=== PATIENT | female | born 1995 | race Caucasian/White ===

== ENCOUNTER 2018-10-10 16:15 | Emergency (ER) | payer SELFPAY ==
[~2018-10-10] VITALS: Ht 152.4 cm; Wt 73.4 kg
[2018-10-10] MEDS ORDERED: ONDANSETRON PF 4 MG/2 ML VIAL. IV ONE (16:45)
[2018-10-10] MEDS ORDERED: IV NORMAL SALINE 1,000ML 1,000 ML IV SCH (16:45)
[2018-10-10] MEDS ORDERED: FAMOTIDINE 20 MG/2 ML VIAL IVP ONE (16:45)
--- NOTE | 2018-10-10 17:01 | PHYS DOC ---
Past History Past Medical History: Hypertension, Other Past Surgical History: Appendectomy, Cholecystectomy, Tonsillectomy, Other Smoking: Non-smoker Alcohol Use: None Drug Use: Marijuana Adult General Chief Complaint Chief Complaint: epigastric pain in [facility] HPI Patient is a 22 year old female who presents with complaining of epigastric pain. Patient is at 21 weeks of gestation and states she had cholecystectomy about one year ago and after her surgery has had episodes of epigastric pain that usually happen after her surgery. Patient states during her pain getting worse and for the last 3 days the pain is worse than usual. Patient complaining of constant pain since this morning as a 7/10 sharp pain that resolved after arrival to emergency room. Patient complaining of episodes of nausea and vomiting. Patient denies abdominal contraction, vaginal bleeding or discharge, fever and chills, diarrhea and constipation, urinary symptom. Patient feels movement without problem. Review of Systems Review of Systems Constitutional: Denies fever or chills [] Eyes: Denies change in visual acuity, redness, or eye pain [] HENT: Denies nasal congestion or sore throat [] Respiratory: Denies cough or shortness of breath [] Cardiovascular: No additional information not addressed in HPI [] GI: Reports abdominal pain, nausea, vomiting, denies bloody stools or diarrhea [ ] : Denies dysuria or hematuria [] Musculoskeletal: Denies back pain or joint pain [] Integument: Denies rash or skin lesions [] Neurologic: Denies headache, focal weakness or sensory changes [] Endocrine: Denies polyuria or polydipsia [] All other systems were reviewed and found to be within normal limits, except as documented in this note. Current Medications Current Medications Current Medications Medications (Trade) Dose Ordered Sig/[facility] Start Time Stop Time Status Last Admin Dose Admin Famotidine (Pepcid Vial) 20 mg 1X ONCE 10/10/18 16:45 10/10/18 16:46 DC Ondansetron HCl (Zofran) 4 mg 1X ONCE 10/10/18 16:45 10/10/18 16:46 DC Sodium Chloride 1,000 ml @ 1,000 mls/hr Q1H 10/10/18 16:45 10/10/18 17:44 Allergies Allergies Allergies Coded Allergies Type Severity Reaction Last Updated Verified amoxicillin Allergy Unknown RASH 10/10/18 Yes clavulanic acid Allergy Unknown RASH 10/10/18 Yes Physical Exam Physical Exam Constitutional: Well developed, well nourished, no acute distress, non-toxic appearance. [] HENT: Normocephalic, atraumatic, bilateral external ears normal, oropharynx moist, no oral exudates, nose normal. [] Eyes: PERRLA, EOMI, conjunctiva normal, no discharge. [] Neck: Normal range of motion, no tenderness, supple, no stridor. [] Cardiovascular:Heart rate regular rhythm, no murmur [] Lungs & Thorax: Bilateral breath sounds clear to auscultation [] Abdomen: Bowel sounds normal, soft, no tenderness, no masses, no pulsatile masses, gravid abdomen without tenderness. [] Skin: Warm, dry, no erythema, no rash. [] Back: No tenderness, no CVA tenderness. [] Extremities: No tenderness, no cyanosis, no clubbing, ROM intact, no edema. [] Neurologic: Alert and oriented X 3, normal motor function, normal sensory function, no focal deficits noted. [] Psychologic: Affect normal, judgement normal, mood normal. [] Current Patient Data Vital Signs Vital Signs Date Time Temp Pulse Resp B/P (MAP) Pulse Ox O2 Delivery O2 Flow Rate FiO2 10/10/18 16:15 97.7 108 18 97 Room Air EKG EKG KG interpreted by me. EKG at 1624 showed sinus tachycardia rate of 103, otherwise normal EKG without acute ST and T wave abnormality. Radiology/Procedures Radiology/Procedures [] Course & Med Decision Making Course & Med Decision Making Pertinent Labs reviewed. (See chart for details) discharge: I've spoken with the patient and/or caregivers. I've explained the patient's condition, diagnosis and treatment plan based on information available to me at this time. I've answered the patient's and/or caregivers questions and addressed any concerns. The patient and/or caregivers have a good understanding the patient's diagnosis, condition and treatment plan as can be expected at this point. Vital signs have been stabilized. The patient's condition is stable for discharge from the emergency department. The patient will pursue further outpatient evaluation with her primary care provider or other designated consulting physician as outlined in the discharge instructions. Patient and/or caregivers are agreeable to this plan of care and follow-up instructions have been explained in detail. The patient and/or caregivers have received these instructions in written format and expressed understanding of these discharge instructions. The patient and her caregivers are aware that if any significant change in condition or worsening of symptoms should prompt him to immediately return to this of the closest emergency department. If an emergent department is not readily available I would encourage him to call 911. Manda Disclaimer Dragon Disclaimer This electronic medical record was generated, in whole or in part, using a voice recognition dictation system. Departure Departure: Impression: Primary Impression: Epigastric pain during , antepartum Additional Impression: Dyspepsia Disposition: HOME, SELF-CARE (at 1743) Condition: IMPROVED Referrals: WAQAS GAITAN (PCP) Patient Instructions: Abdominal Pain During , Diet for Gastroesophageal Reflux Disease, Adult Additional Instructions: Follow-up with your [facility] physician in 3-5 days Return to ER if not getting better Scripts Famotidine (PEPCID) 20 Mg Tablet 1 TAB PO BID for dyspepsia, #60 TAB 0 Refills Prov: MARCIA WATKINS MD 10/10/18 Problem Qualifiers MARCIA WATKINS MD Oct 10, 2018 17:01
[2018-10-10 17:02] LABS: BASO # 0.1 x10^3/uL (0.0-0.2); BASO % 1 % (0-3); EOS # 0.1 x10^3/uL (0.0-0.7); EOS % 1 % (0-3); HEMOGLOBIN 12.7 g/dL (12.0-15.5); LYMPH # 1.4 x10^3/uL (1.0-4.8); LYMPH % 12 % (24-48); MEAN CORPUSCULAR HEMOGLOBIN 32 pg (25-35); MEAN CORPUSCULAR HGB CONC 34 g/dL (31-37); MEAN CORPUSCULAR VOLUME 93 fL (79-100); MONO # 0.8 x10^3/uL (0.0-1.1); MONO % 7 % (0-9); NEUT # 9.7 x10^3uL (1.8-7.7); NEUT % 80 % (31-73); PLATELET COUNT 242 x10^3/uL (140-400); RED BLOOD COUNT 3.97 x10^6/uL (3.50-5.40); WHITE BLOOD COUNT 12.1 x10^3/uL (4.0-11.0)
[2018-10-10 17:13] LABS: ALBUMIN 2.7 g/dL (3.4-5.0); ALBUMIN/GLOBULIN RATIO 0.7 (1.0-1.7); CALCIUM 7.8 mg/dL (8.5-10.1); CREATININE 0.5 mg/dL (0.6-1.0); GFR 154.3; POTASSIUM 3.7 mmol/L (3.5-5.1); TOTAL BILIRUBIN 0.4 mg/dL (0.2-1.0); TOTAL PROTEIN 6.4 g/dL (6.4-8.2)
[2018-10-10 17:30] VITALS: BP 108/68
[2018-10-10 17:34] LABS: BILIRUBIN,URINE NEG (NEG); CLARITY,URINE CLEAR; COLOR,URINE YELLOW; GLUCOSE,URINE NEG (NEG); NITRITE,URINE NEG (NEG); UROBILINOGEN,URINE 0.2 mg/dL (0.2 mg/dL)
[2018-10-10 17:35] LABS: BACTERIA,URINE FEW /HPF (0-FEW); RBC,URINE 0 /HPF (0-2); SQUAMOUS EPITHELIAL CELL,UR OCC /LPF
--- NOTE | 2018-10-10 17:45 | EKG ---
[address] [address] Test Date: 2018-10-10 Test Time: 16:24:31 Pat Name: MONTEZ BARNES Department: Room: Gender: F Electric Crane Operator: NICK : [id number] Requested By: MARCIA WATKINS Order Number: [id number] Reading MD: Irineo Toro MD Measurements Intervals Noti Rate: 103 P: 39 MD: 130 QRS: 33 QRSD: 76 T: 19 QT: 328 QTc: 432 Interpretive Statements SINUS TACHYCARDIA Electronically Signed On 10-16-2018 9:25:53 DINKER by Irineo Toro MD
[2018-10-10] MEDS ORDERED: FAMO-63 PO (17:46)
== END 2018-10-10 17:54 | disposition home or self-care (01) ==
LOC: ER 16:15
DX: O26.892 Other specified pregnancy related conditions, second trimester (principal); R10.13 Epigastric pain; O21.9 Vomiting of pregnancy, unspecified; O16.2 Unspecified maternal hypertension, second trimester; Z3A.21 21 weeks gestation of pregnancy; Z90.49 Acquired absence of other specified parts of digestive tract; Z90.89 Acquired absence of other organs; Z88.1 Allergy status to other antibiotic agents
CPT/HCPCS: 36415; 80053; 81001; 83690; 85025; 93005; 96361; 96374; 96375; 99284; J2405; J3490; J7030

== ENCOUNTER 2020-01-12 18:16 | Emergency (ER) | payer OTHER ==
[~2020-01-12] VITALS: Ht 152.4 cm; Wt 57.3 kg
[~2020-01-12 18:16] MED LIST: FAMO-63 PO
[2020-01-12 18:44] VITALS: BP 133/80
--- NOTE | 2020-01-12 18:45 | PHYS DOC ---
Past History Past Medical History: Hypertension, Other Past Surgical History: Appendectomy, Cholecystectomy, Tonsillectomy, Other Smoking: Non-smoker Alcohol Use: None Drug Use: Marijuana General Adult EDM: Chief Complaint: SEXUALLY TRANSMITTED DISEASE HPI: HPI: 24F p/w vaginal irritation and some mild dysuria. 3 days ago, Tx for chlamydia, gonorrhea. Also on treatment for genital herpes. No vaginal bleeding or discharge at this time, now resolved. No aggravating or alleviating factors. Review of Systems: Review of Systems: Constitutional: Denies fever or chills Eyes: Denies change in visual acuity HENT: Denies nasal congestion or sore throat Respiratory: Denies cough or shortness of breath Cardiovascular: Denies chest pain or edema GI: Denies abdominal pain, nausea, vomiting, bloody stools or diarrhea : Reports dyuria, vaginal irritation. Musculoskeletal: Denies back pain or joint pain Integument: Denies rash Neurologic: Denies headache, focal weakness or sensory changes Heart Score: Risk Factors: Risk Factors: DM, Current or recent (<one month) smoker, HTN, HLP, family history of CAD, obesity. Risk Scores: Score 0 - 3: 2.5% MACE over next 6 weeks - Discharge Home Score 4 - 6: 20.3% MACE over next 6 weeks - Admit for Clinical Observation Score 7 - 10: 72.7% MACE over next 6 weeks - Early Invasive Strategies Allergies: Allergies: Allergies Coded Allergies Type Severity Reaction Last Updated Verified amoxicillin Allergy Unknown RASH 10/10/18 Yes clavulanic acid Allergy Unknown RASH 10/10/18 Yes Physical Exam: PE: Constitutional: Well developed, well nourished, no acute distress, non-toxic appearance. [] HENT: Normocephalic, atraumatic, bilateral external ears normal, oropharynx moist, Eyes: PERRL, conjunctiva normal, no discharge. [] Neck: Normal range of motion, no tenderness, supple, no stridor. [] Cardiovascular:Heart rate regular rhythm, no murmur [] Lungs & Thorax: Bilateral breath sounds clear to auscultation [] Abdomen: Bowel sounds normal, soft, no tenderness : No vulovaginal lesions or rash. Skin: Warm, dry, no erythema, no rash. [] Back: No tenderness, no CVA tenderness. [] Extremities: No tenderness, no cyanosis, no clubbing Neurologic: Alert and oriented X 3 Psychologic: Affect normal, judgement normal, mood normal. [] EKG: EKG: [] Radiology/Procedures: Radiology/Procedures: [] Course & Med Decision Making: Course & Med Decision Making In summary, 24F Tx for chlamydia/gonorrhea a few days ago, p/w vaginal irriation/itching. Largely unremarkable abd/ exam. UA unremarkable. HCG neg. Will Tx empirically for possible vulovaginal candidiasis with diflucan 150 PO x1. Will DC home with outpatient FU. Return precautions given. Dragon Disclaimer: Dragon Disclaimer: This electronic medical record was generated, in whole or in part, using a voice recognition dictation system. Departure Departure: Impression: Primary Impression: Vulvovaginal candidiasis Disposition: 01 HOME, SELF-CARE Condition: STABLE Referrals: WAQAS GAITAN (PCP) Patient Instructions: Candidal Vulvovaginitis, [id number] Additional Instructions: Please follow up with your primary doctor. VERONA BECK DO January 12, 2020 18:45
[2020-01-12 18:59] LABS: U PREG PATIENT NEGATIVE (NEG)
[2020-01-12 19:00] LABS: BILIRUBIN,URINE NEG (NEG); CLARITY,URINE CLOUDY; COLOR,URINE YELLOW; GLUCOSE,URINE NEG (NEG); NITRITE,URINE NEG (NEG); UROBILINOGEN,URINE 0.2 mg/dL (0.2 mg/dL)
[2020-01-12 19:06] LABS: RBC,URINE >40 /HPF (0-2)
[2020-01-12 19:07] LABS: BACTERIA,URINE MOD /HPF (0-FEW)
[2020-01-12 19:08] LABS: SQUAMOUS EPITHELIAL CELL,UR MANY /LPF
[2020-01-12] MEDS ORDERED: FLUCONAZOLE 100 MG TABLET. PO ONE (19:15)
== END 2020-01-12 19:18 | disposition home or self-care (01) ==
LOC: ER 18:16
DX: B37.3 Candidiasis of vulva and vagina (principal); I10 Essential (primary) hypertension; Z88.1 Allergy status to other antibiotic agents
CPT/HCPCS: 81001; 81025; 99283

== ENCOUNTER 2020-06-15 12:31 | Emergency (ER) | payer OTHER ==
[~2020-06-15] VITALS: Ht 152.4 cm; Wt 60.7 kg
[2020-06-15 12:43] VITALS: BP 120/88
[2020-06-15] MEDS ORDERED: CLIN300C8 PO (13:11)
--- NOTE | 2020-06-15 13:11 | PHYS DOC ---
Past History Past Medical History: Anxiety, Depression, Hypertension, Other Additional Past Medical Histor: ADHD, Gastroenteritis Past Surgical History: Appendectomy, Cholecystectomy, Tonsillectomy, Other Additional Past Surgical Histo: left knee surgery x2 Smoking: Non-smoker Alcohol Use: Rarely Drug Use: Marijuana General Adult EDM: Chief Complaint: SKIN PROBLEM HPI: HPI: Patient is a [age] year old [sex] who presents with [] Review of Systems: Review of Systems: Constitutional: Denies fever or chills Eyes: Denies change in visual acuity HENT: Denies nasal congestion or sore throat Respiratory: Denies cough or shortness of breath Cardiovascular: Denies chest pain or edema GI: Denies abdominal pain, nausea, vomiting, bloody stools or diarrhea : Denies dysuria Musculoskeletal: Denies back pain or joint pain Integument: Denies rash Neurologic: Denies headache, focal weakness or sensory changes Endocrine: Denies polyuria or polydipsia Lymphatic: Denies swollen glands Psychiatric: Denies depression or anxiety Heart Score: Risk Factors: Risk Factors: DM, Current or recent (<one month) smoker, HTN, HLP, family history of CAD, obesity. Risk Scores: Score 0 - 3: 2.5% MACE over next 6 weeks - Discharge Home Score 4 - 6: 20.3% MACE over next 6 weeks - Admit for Clinical Observation Score 7 - 10: 72.7% MACE over next 6 weeks - Early Invasive Strategies Allergies: Allergies: Allergies Coded Allergies Type Severity Reaction Last Updated Verified amoxicillin Allergy Unknown RASH 10/10/18 Yes clavulanic acid Allergy Unknown RASH 10/10/18 Yes Physical Exam: PE: Constitutional: Well developed, well nourished, no acute distress, non-toxic appearance. [] HENT: Normocephalic, atraumatic, bilateral external ears normal, oropharynx moist, no oral exudates, nose normal. [] Eyes: PERRLA, EOMI, conjunctiva normal, no discharge. [] Neck: Normal range of motion, no tenderness, supple, no stridor. [] Cardiovascular:Heart rate regular rhythm, no murmur [] Lungs & Thorax: Bilateral breath sounds clear to auscultation [] Abdomen: Bowel sounds normal, soft, no tenderness, no masses, no pulsatile masses. [] Skin: Warm, dry, no erythema, no rash. [] Back: No tenderness, no CVA tenderness. [] Extremities: No tenderness, no cyanosis, no clubbing, ROM intact, no edema. [] Neurologic: Alert and oriented X 3, normal motor function, normal sensory function, no focal deficits noted. [] Psychologic: Affect normal, judgement normal, mood normal. [] Current Patient Data: Vital Signs: Vital Signs Date Time Temp Pulse Resp B/P (MAP) Pulse Ox O2 Delivery O2 Flow Rate FiO2 06/15/20 12:43 98.4 89 16 120/88 (99) 97 Room Air EKG: EKG: [] Radiology/Procedures: Radiology/Procedures: [] Course & Med Decision Making: Course & Med Decision Making Pertinent Labs and Imaging studies reviewed. (See chart for details) [] Dragon Disclaimer: Dragon Disclaimer: This electronic medical record was generated, in whole or in part, using a voice recognition dictation system. Departure Departure: Impression: Primary Impression: Cellulitis of right elbow Disposition: 01 DC HOME SELF CARE/HOMELESS Condition: STABLE Referrals: WAQAS GAITAN (PCP) Patient Instructions: Cellulitis, [id number], Insect Bite, [id number] Scripts Clindamycin Hcl (CLINDAMYCIN HCL) 300 Mg Capsule 1 CAP PO TID for infection for 7 Days, #21 CAP Prov: HARRIS CRAWFORD DO 06/15/20 HARRIS CRAWFORD DO Jun 15, 2020 13:11
[2020-06-15] MEDS ORDERED: CLINDAMYCIN HCL 150 MG CAPSULE PO ONE (13:30)
[2020-06-15] MEDS ORDERED: DEXAMETHASONE 4 MG TABLET PO ONE (13:30)
== END 2020-06-15 13:18 | disposition home or self-care (01) ==
LOC: ER 12:31
DX: L03.113 Cellulitis of right upper limb (principal); I10 Essential (primary) hypertension; Z88.1 Allergy status to other antibiotic agents
CPT/HCPCS: 99283; J8540

== ENCOUNTER 2020-06-30 13:44 | Emergency (ER) | payer OTHER ==
[~2020-06-30] VITALS: Ht 152.4 cm; Wt 59.0 kg
[~2020-06-30 13:44] MED LIST changes: +CLIN300C8 PO
[2020-06-30 14:26] VITALS: BP 132/100
== END 2020-06-30 15:18 | disposition left against medical advice (07) ==
LOC: ER 13:44
DX: N89.8 Other specified noninflammatory disorders of vagina (principal); Z53.21 Procedure and treatment not carried out due to patient leaving prior to being seen by health care provider

== ENCOUNTER 2020-08-15 02:11 | Emergency (ER) | payer OTHER ==
[~2020-08-15] VITALS: Ht 152.4 cm; Wt 59.0 kg
--- NOTE | 2020-08-15 02:29 | PHYS DOC ---
Past History Past Medical History: Hypertension, Migraines, Other Additional Past Medical Histor: ADHD, Gastroenteritis Past Surgical History: Other Additional Past Surgical Histo: left knee surgery x2 Smoking: Non-smoker Alcohol Use: None Drug Use: Marijuana General Adult EDM: Chief Complaint: HEADACHE HPI: HPI: Patient is a 24-year-old female coming in for headache. Patient states she has a history of migraines and has multiple visits to emergency departments for headaches. Patient also states she has had some nausea and vomiting which she typically has with her headaches. Has baseline diarrhea. Patient states headache started in the frontal area of her head and now is around her entire head. Patient states she was sleeping when the headache started but it woke her up yesterday afternoon. Says it very quickly went to maximal intensity. States she has not had a headache this bad in the past. States otherwise she has been well not had any fevers, body aches, cough. Review of Systems: Review of Systems: Constitutional: Denies fever or chills Eyes: Denies change in visual acuity, complains of photophobia HENT: Denies nasal congestion or sore throat Respiratory: Denies cough or shortness of breath Cardiovascular: Denies chest pain or edema GI: Denies abdominal pain, nausea, vomiting, bloody stools or diarrhea : Denies dysuria Musculoskeletal: Denies back pain or joint pain Integument: Denies rash Neurologic: Diffuse headache but denies focal weakness or sensory changes Endocrine: Denies polyuria or polydipsia Lymphatic: Denies swollen glands Psychiatric: Denies depression or anxiety Current Medications: Current Meds: Current Medications Medications (Trade) Dose Ordered Sig/Tere Start Time Stop Time Status Last Admin Dose Admin Diphenhydramine HCl (Benadryl) 50 mg 1X ONCE 08/15/20 02:30 08/15/20 02:31 UNV Ondansetron HCl (Zofran) 4 mg 1X ONCE 08/15/20 02:30 08/15/20 02:31 UNV Prochlorperazine Edisylate (Compazine) 10 mg 1X ONCE 08/15/20 02:30 08/15/20 02:31 UNV Sodium Chloride 1,000 ml @ 1,000 mls/hr 1X ONCE 08/15/20 02:30 08/15/20 03:29 UNV Allergies: Allergies: Allergies Coded Allergies Type Severity Reaction Last Updated Verified amoxicillin Allergy Unknown 06/30/20 Yes clavulanic acid Allergy Unknown RASH 10/10/18 Yes Physical Exam: PE: Constitutional: Well developed, well nourished, no acute distress, non-toxic appearance. [] HENT: Normocephalic, atraumatic, bilateral external ears normal, oropharynx moist, no oral exudates, nose normal. [] Eyes: PERRLA, EOMI, conjunctiva normal, no discharge. [] Neck: Normal range of motion, no tenderness, supple, no stridor. [] Cardiovascular:Heart rate regular rhythm, no murmur [] Lungs & Thorax: Bilateral breath sounds clear to auscultation [] Abdomen: Bowel sounds normal, soft, no tenderness, no masses, no pulsatile masses. [] Skin: Warm, dry, no erythema, no rash. [] Back: No tenderness, no CVA tenderness. [] Extremities: No tenderness, no cyanosis, no clubbing, ROM intact, no edema. [] Neurologic: Alert and oriented X 3, normal motor function, normal sensory function, no focal deficits noted. [] Psychologic: Affect normal, judgement normal, mood normal. [] Current Patient Data: Vital Signs: Vital Signs Date Time Temp Pulse Resp B/P (MAP) Pulse Ox O2 Delivery O2 Flow Rate FiO2 08/15/20 02:11 98.5 66 18 147/86 (106) 97 Room Air EKG: EKG: [] Radiology/Procedures: Radiology/Procedures: INDICATION: Reason: Severe headache / Spl. Instructions: / History: COMPARISON: None. TECHNIQUE: Axial CT images obtained through the head without intravenous contrast. One or more of the following individualized dose reduction techniques were utilized for this examination: 1. Automated exposure control; 2. Adjustment of the mA and/or kV according to patient size; 3. Use of iterative reconstruction technique. FINDINGS: No intracranial hemorrhage. No midline shift. Basal cisterns patent. Ventricles and sulci are unremarkable. No acute osseous abnormality. Orbits and paranasal sinuses unremarkable. IMPRESSION: * No acute intracranial hemorrhage. [] Heart Score: Risk Factors: Risk Factors: DM, Current or recent (<one month) smoker, HTN, HLP, family history of CAD, obesity. Risk Scores: Score 0 - 3: 2.5% MACE over next 6 weeks - Discharge Home Score 4 - 6: 20.3% MACE over next 6 weeks - Admit for Clinical Observation Score 7 - 10: 72.7% MACE over next 6 weeks - Early Invasive Strategies Course & Med Decision Making: Course & Med Decision Making Pertinent Labs and Imaging studies reviewed. (See chart for details) Headache improved medications, work-up unremarkable. [] Dragon Disclaimer: Dragon Disclaimer: This electronic medical record was generated, in whole or in part, using a voice recognition dictation system. Departure Departure: Impression: Primary Impression: Migraine headache Disposition: 01 DC HOME SELF CARE/HOMELESS Condition: IMPROVED Referrals: WAQAS GAITAN (PCP) Patient Instructions: General Headache Without Cause SONJA LAKE MD Aug 15, 2020 02:28
[2020-08-15] MEDS ORDERED: IV NORMAL SALINE 1,000ML 1,000 ML IV ONE (02:30)
[2020-08-15] MEDS ORDERED: PROCHLORPERAZINE 10 MG/2 ML VIAL. IV ONE (02:30)
[2020-08-15] MEDS ORDERED: ONDANSETRON PF 4 MG/2 ML VIAL. IVP ONE (02:30)
[2020-08-15] MEDS ORDERED: diphenhydrAMINE 50 MG/ML VIAL IVP ONE (02:30)
--- NOTE | 2020-08-15 03:18 | RAD ---
INDICATION: Reason: Severe headache / Spl. Instructions: / History: COMPARISON: None. TECHNIQUE: Axial CT images obtained through the head without intravenous contrast. One or more of the following individualized dose reduction techniques were utilized for this examinat ion: 1. Automated exposure control; 2. Adjustment of the mA and/or kV according to patient size; 3 . Use of iterative reconstruction technique. FINDINGS: No intracranial hemorrhage. No midline shift. Basal cisterns patent. Ventricles and sulci are unremarkable. No acute osseous abnormality. Orbits and paranasal sinuses unremarkable. IMPRESSION: * No acute intracranial hemorrhage. Electronically signed by: Camilo Schaffer MD (08/15/2020 3:15 AM) [id number]
[2020-08-15 03:22] LABS: BASO # 0.1 x10^3/uL (0.0-0.2); BASO % 1 % (0-3); EOS % 0 % (0-3); HEMATOCRIT 43.1 % (36.0-47.0); HEMOGLOBIN 14.4 g/dL (12.0-15.5); LYMPH # 1.8 x10^3/uL (1.0-4.8); LYMPH % 16 % (24-48); MEAN CORPUSCULAR HEMOGLOBIN 31 pg (25-35); MEAN CORPUSCULAR HGB CONC 34 g/dL (31-37); MEAN CORPUSCULAR VOLUME 92 fL (79-100); MONO # 0.4 x10^3/uL (0.0-1.1); MONO % 4 % (0-9); NEUT # 8.7 x10^3uL (1.8-7.7); NEUT % 79 % (31-73); PLATELET COUNT 225 x10^3/uL (140-400); RED BLOOD COUNT 4.68 x10^6/uL (3.50-5.40); RED CELL DISTRIBUTION WIDTH 12.8 % (11.5-14.5)
[2020-08-15 03:26] LABS: CALCIUM 8.8 mg/dL (8.5-10.1); CREATININE 0.9 mg/dL (0.6-1.0); GFR 76.9; POTASSIUM 3.4 mmol/L (3.5-5.1)
[2020-08-15 03:34] LABS: ALBUMIN 3.8 g/dL (3.4-5.0); ALBUMIN/GLOBULIN RATIO 1.1 (1.0-1.7); TOTAL BILIRUBIN 0.4 mg/dL (0.2-1.0); TOTAL PROTEIN 7.2 g/dL (6.4-8.2)
[2020-08-15] MEDS ORDERED: KETOROLAC 15 MG/ML VIAL. IVP ONE (04:00)
[2020-08-15 04:04] VITALS: BP 134/87
== END 2020-08-15 04:25 | disposition home or self-care (01) ==
LOC: ER 02:11
DX: G43.909 Migraine, unspecified, not intractable, without status migrainosus (principal); R11.2 Nausea with vomiting, unspecified; R19.7 Diarrhea, unspecified; I10 Essential (primary) hypertension; F90.9 Attention-deficit hyperactivity disorder, unspecified type; Z88.1 Allergy status to other antibiotic agents
CPT/HCPCS: 36415; 70450; 80053; 85025; 96361; 96374; 96375; 99284; J0780; J1200; J1885; J2405; J7030

== ENCOUNTER 2020-09-27 08:23 | Emergency (ER) | payer OTHER ==
[~2020-09-27] VITALS: Ht 152.4 cm; Wt 61.6 kg
[~2020-09-27 08:23] MED LIST changes: -CLIN300C8 PO; +CLIN300C9 PO
[2020-09-27] MEDS ORDERED: ONDANSETRON ODT 4 MG TAB.RAPDIS PO ONE (08:30)
[2020-09-27] MEDS ORDERED: AZITHROMYCIN 250 MG TABLET. PO ONE (09:00)
[2020-09-27] MEDS ORDERED: IV NORMAL SALINE 1,000ML 1,000 ML IV ONE (09:00)
[2020-09-27 09:17] LABS: BASO # 0.1 x10^3/uL (0.0-0.2); BASO % 1 % (0-3); EOS % 0 % (0-3); HEMATOCRIT 40.7 % (36.0-47.0); HEMOGLOBIN 13.7 g/dL (12.0-15.5); LYMPH # 2.1 x10^3/uL (1.0-4.8); LYMPH % 21 % (24-48); MEAN CORPUSCULAR HEMOGLOBIN 31 pg (25-35); MEAN CORPUSCULAR HGB CONC 34 g/dL (31-37); MEAN CORPUSCULAR VOLUME 92 fL (79-100); MONO # 0.6 x10^3/uL (0.0-1.1); MONO % 6 % (0-9); NEUT # 7.2 x10^3uL (1.8-7.7); NEUT % 72 % (31-73); PLATELET COUNT 236 x10^3/uL (140-400); RED BLOOD COUNT 4.43 x10^6/uL (3.50-5.40)
[2020-09-27 09:26] LABS: CALCIUM 8.7 mg/dL (8.5-10.1); CREATININE 0.7 mg/dL (0.6-1.0); GFR 102.8; POTASSIUM 3.8 mmol/L (3.5-5.1)
--- NOTE | 2020-09-27 09:29 | PHYS DOC ---
Past History Past Medical History: Hypertension, Migraines, Other Additional Past Medical Histor: ADHD, Gastroenteritis Past Surgical History: Other Additional Past Surgical Histo: left knee surgery x2 Past Surgical History L fallopian tube removal due to ectopic . Smoking: Non-smoker Alcohol Use: None Drug Use: Marijuana General Adult EDM: Chief Complaint: MULTIPLE COMPLAINTS HPI: HPI: Patient is a 24 year old female who presents with vaginal discharge, nausea and vomiting x 1 day. She states she is 5 wks based on LMP which was Aug 12 and two at home positive tests. She has not yet seen her OB, her first appointment is Oct 24. She states she was diagnosed with trichomonas back in July both her and her partner were treated for it, but the symptoms feel the same to when she had that. This is her third , she has 1 living child at home and has a history of an ectopic which was removed along with her left fallopian tube. She denies any morning sickness symptoms with her first 2 pregnancies, states she has been vomiting 10 times per day for the last few days. She has had multiple sexual partners within the past few months. She has no other complaints at this time, denies any vaginal bleeding, pelvic cramping, or pelvic pain. Review of Systems: Review of Systems: Constitutional: Denies fever or chills Eyes: Denies redness or eye pain HENT: Denies nasal congestion or sore throat Respiratory: Denies cough or shortness of breath Cardiovascular: Denies chest pain or palpitations GI: Denies abdominal pain, nausea, or vomiting : Denies dysuria or hematuria. States she has had white/greenish vaginal discharge. Musculoskeletal: Denies back pain or joint pain Integument: Denies rash or skin lesions Neurologic: Denies headache, focal weakness or sensory changes Complete systems were reviewed and found to be within normal limits, except as documented in this note. Current Medications: Current Meds: Current Medications Medications (Trade) Dose Ordered Sig/Tere Start Time Stop Time Status Last Admin Dose Admin Azithromycin (Zithromax) 1,000 mg 1X ONCE 09/27/20 09:00 09/27/20 09:01 DC Ceftriaxone Sodium (Rocephin Im) 500 mg 1X ONCE 09/27/20 09:00 09/27/20 09:01 DC Ondansetron HCl (Zofran Odt) 4 mg 1X ONCE 09/27/20 08:30 09/27/20 08:32 DC 09/27/20 08:39 4 MG Sodium Chloride 1,000 ml @ 1,000 mls/hr 1X ONCE 09/27/20 09:00 09/27/20 09:59 09/27/20 08:58 1,000 MLS/HR Allergies: Allergies: Allergies Coded Allergies Type Severity Reaction Last Updated Verified amoxicillin Allergy Unknown 06/30/20 Yes clavulanic acid Allergy Unknown RASH 10/10/18 Yes Physical Exam: PE: Constitutional: Well developed, well nourished, no acute distress, non-toxic appearance HENT: Normocephalic, atraumatic Eyes: PERRL, EOMI, conjunctiva normal, no discharge Neck: Normal range of motion, no tenderness, supple Lungs & Thorax: No respiratory distress, equal chest rise and fall Abdomen: Soft, no tenderness : A speculum exam was performed with diploma dental assistant (Katrin CARRILLO) present in the room. Cervical os was closed, with no bleeding or lesions. There was moderate white/green discharge from the os. No CMT, slight right sided adnexal tenderness with bimanual exam. No left adnexal tenderness. Skin: Warm, dry, no erythema, no rash Back: No tenderness, no CVA tenderness Extremities: No tenderness, ROM intact, no edema Neurologic: Alert and oriented X 3, normal motor function, normal sensory function, no focal deficits noted Psychologic: Affect normal, judgment normal Current Patient Data: Labs: Laboratory Tests Test 09/27/20 08:57 White Blood Count 10.0 x10^3/uL (4.0-11.0) Red Blood Count 4.43 x10^6/uL (3.50-5.40) Hemoglobin 13.7 g/dL (12.0-15.5) Hematocrit 40.7 % (36.0-47.0) Mean Corpuscular Volume 92 fL (79-100) Mean Corpuscular Hemoglobin 31 pg (25-35) Mean Corpuscular Hemoglobin Concent 34 g/dL (31-37) Red Cell Distribution Width 13.0 % (11.5-14.5) Platelet Count 236 x10^3/uL (140-400) Neutrophils (%) (Auto) 72 % (31-73) Lymphocytes (%) (Auto) 21 % (24-48) L Monocytes (%) (Auto) 6 % (0-9) Eosinophils (%) (Auto) 0 % (0-3) Basophils (%) (Auto) 1 % (0-3) Neutrophils # (Auto) 7.2 x10^3uL (1.8-7.7) Lymphocytes # (Auto) 2.1 x10^3/uL (1.0-4.8) Monocytes # (Auto) 0.6 x10^3/uL (0.0-1.1) Eosinophils # (Auto) 0.0 x10^3/uL (0.0-0.7) Basophils # (Auto) 0.1 x10^3/uL (0.0-0.2) EKG: EKG: [] Radiology/Procedures: Radiology/Procedures: [] Course & Med Decision Making: Course & Med Decision Making Pertinent Lab studies reviewed. (See chart for details) Payal Loo is a 24-year-old female presenting today with vaginal discharge, nausea, and vomiting. She has 5 weeks based off last menstrual period and 2 at home test. Her serum bhcg was 52,124 which is consistent with her estimated gestational age. She was given a fluid bolus to help with dehydration, and zofran to help with her nausea. Labs were unremarkable. Her urinalysis did not show any sign of UTI. No ketones which would have made me more concerned for hyperemesis gravidarum as an etiology for her n/v, due to this her n/v is more consistent with normal symptoms. Her wet prep did not show any signs of trichimonas, yeast infection, or clue cells. Due to her sexual history, and symptoms have prescribed prophylactic treatment with azithromycin and rocephin for gonorrhea and chlamydia while awaiting her official cultures. I have also given her prescriptions for a vitamin and zofran prn to help with the nausea. She already has a scheduled appointment with her regular OB for October 24. All other questions were answered. Patient stable for discharge with outpatient follow-up with PCP. Discussed findings and plan with patient, who acknowledges understanding and agreement. Manda Disclaimer: Manda Disclaimer: This electronic medical record was generated, in whole or in part, using a voice recognition dictation system. Departure Departure: Impression: Primary Impression: Nausea and vomiting in Additional Impression: Vaginal discharge in Qualified Codes: O26.891 - Other specified related conditions, first trimester; N89.8 - Other specified noninflammatory disorders of vagina Disposition: 01 DC HOME SELF CARE/HOMELESS Condition: STABLE Referrals: WAQAS GAITAN (PCP) Patient Instructions: Nausea and Vomiting, [id number], Sexually Transmitted Diseases (STD) In Additional Instructions: You have been tested and treated for Chlamydia and Gonorrhea. The cultures still are pending at this time. If they come back (typically 48hours) positive, we will contact your regarding the result. You have already been treated. Please follow closely with your OB. Please hold any sexual activity for next 1 week. Scripts Vit #76/Iron,Carb/Fa (PRENATABS RX TABLET) 1 Each Tablet 1 TAB PO DAILY for , #30 TAB 0 Refills Prov: HARRIS CRAWFORD DO 09/27/20 Ondansetron (ONDANSETRON ODT) 4 Mg Tab.rapdis 1 TAB PO PRN Q6-8HRS PRN for NAUSEA, #16 TAB Prov: HARRIS CRAWFORD DO 09/27/20 HARRIS CRAWFORD DO Sep 27, 2020 09:29
[2020-09-27 09:33] LABS: ALBUMIN 3.4 g/dL (3.4-5.0); MAGNESIUM 1.9 mg/dL (1.8-2.4); TOTAL BILIRUBIN 0.3 mg/dL (0.2-1.0); TOTAL PROTEIN 6.8 g/dL (6.4-8.2)
[2020-09-27 09:59] LABS: AMORPHOUS SEDIMENT,UR PRESENT /HPF; BACTERIA,URINE FEW /HPF (0-FEW); BILIRUBIN,URINE NEG (NEG); CLARITY,URINE HAZY; COLOR,URINE YELLOW; GLUCOSE,URINE NEG (NEG); HYALINE CASTS, URINE FEW /HPF; NITRITE,URINE NEG (NEG); SQUAMOUS EPITHELIAL CELL,UR MANY /LPF; UROBILINOGEN,URINE 0.2 mg/dL (0.2 mg/dL)
[2020-09-27] MEDS ORDERED: PREN-2 PO (10:34)
[2020-09-27] MEDS ORDERED: ONDA4TAB12 PO (10:34)
[2020-09-27 10:51] VITALS: BP 119/70
[2020-09-28 19:07] LABS: CHLAMYDIA PROBE Negative (Negative)
== END 2020-09-27 10:57 | disposition home or self-care (01) ==
LOC: ER 08:23
DX: O21.9 Vomiting of pregnancy, unspecified (principal); O26.891 Other specified pregnancy related conditions, first trimester; N89.8 Other specified noninflammatory disorders of vagina; O16.1 Unspecified maternal hypertension, first trimester; G43.909 Migraine, unspecified, not intractable, without status migrainosus; Z3A.01 Less than 8 weeks gestation of pregnancy; Z88.1 Allergy status to other antibiotic agents
CPT/HCPCS: 36415; 80053; 81001; 83690; 83735; 84702; 85025; 87491; 87591; 96360; 96361; 96372; 99284; J0696; J7030; Q0111; Q0162

== ENCOUNTER 2020-10-09 08:00 | Emergency (ER) | payer OTHER ==
[~2020-10-09] VITALS: Ht 152.4 cm; Wt 61.6 kg
[~2020-10-09 08:00] MED LIST changes: +ONDA4TAB12 PO; +PREN-2 PO
[2020-10-09 08:03] VITALS: BP 123/78
[2020-10-09] MEDS ORDERED: ONDANSETRON ODT 4 MG TAB.RAPDIS ONE (08:05)
[2020-10-09 10:00] LABS: BARBITURATES NEG (NEG); BENZODIAZEPINES NEG (NEG); CANNABINOIDS POS (NEG); COCAINE NEG (NEG); METHADONE NEG (NEG); OPIATES NEG (NEG); PHENCYCLIDINE NEG (NEG)
[2020-10-09 10:01] LABS: AMPHETAMINE/METHAMPHETAMINE NEG (NEG)
[2020-10-09 10:08] LABS: BILIRUBIN,URINE NEG (NEG); CLARITY,URINE TURBID; COLOR,URINE YELLOW; GLUCOSE,URINE NEG (NEG); NITRITE,URINE NEG (NEG)
[2020-10-09 10:09] LABS: AMORPHOUS SEDIMENT,UR PRESENT /HPF; BACTERIA,URINE MOD /HPF (0-FEW); SQUAMOUS EPITHELIAL CELL,UR MOD /LPF
[2020-10-09] MEDS ORDERED: CEPH500T PO (10:23)
[2020-10-09] MEDS ORDERED: ONDA4TAB12 PO (10:23)
--- NOTE | 2020-10-09 10:24 | PHYS DOC ---
Past History Past Medical History: Hypertension, Other Additional Past Medical Histor: EISONOPHILIC GASTROENTERITIS Past Surgical History: Appendectomy, Cholecystectomy, Tonsillectomy, Tubal ligation, Other Additional Past Surgical Histo: KNEE X2 Smoking: Non-smoker Alcohol Use: None Drug Use: Marijuana Social History Narrative: marijuana yesterday General Adult EDM: Chief Complaint: VOMITING IN HPI: HPI: Patient is a 24-year-old female coming from EMS for 4 hours of vomiting and retching. Patient states she ran out of [email or web address] last night which has been working. He does not have any prior history of hyperemesis. Admits to daily use of marijuana. Denies any other drugs or alcohol. Patient states this is her third , has 1 child and had 1 ectopic. Denies any fevers, diarrhea, constipation. Review of Systems: Review of Systems: All other systems within normal limits except for as noted in the HPI Current Medications: Current Meds: Current Medications Medications (Trade) Dose Ordered Sig/Tere Start Time Stop Time Status Last Admin Dose Admin Ondansetron HCl (ZoBlurb Odt) 4 mg STK-MED ONCE 10/09/20 08:05 10/09/20 08:05 DC Allergies: Allergies: Allergies Coded Allergies Type Severity Reaction Last Updated Verified amoxicillin Allergy Unknown 10/09/20 Yes clavulanic acid Allergy Unknown RASH 10/09/20 Yes Physical Exam: PE: Constitutional: Well developed, well nourished, acute distress, non-toxic appearance. [] HENT: Normocephalic, atraumatic, bilateral external ears normal, nose normal. [] Eyes: PERRLA, conjunctiva normal, no discharge. [] Neck: No rigidity, supple, no stridor. [] Cardiovascular: Regular rate and rhythm, brisk cap refill [] Lungs & Thorax: Non labored symmetric respirations, no tachypnea or respiratory distress [] Abdomen: Soft, nondistended, generalized tenderness, no guarding or rebound. Skin: Warm, dry, no erythema, no rash. [] Back: Unremarkable Extremities: No deformities, range of motion grossly intact, no lower extremity edema [] Neurologic: Alert and oriented X 3, no focal deficits noted. [] Psychologic: Affect normal, judgement normal, mood normal. [] Current Patient Data: Labs: Laboratory Tests Test 2/7/21 09:25 10/09/20 09:37 Urine Collection Type Unknown Urine Color Yellow Urine Clarity Turbid Urine pH 8.0 Urine Specific [place] 1.020 Urine Protein Trace (NEG-TRACE) Urine Glucose (UA) Neg mg/dL (NEG) Urine Ketones (Stick) 15 mg/dL (NEG) Urine Blood Trace (NEG) Urine Nitrite Neg (NEG) Urine Bilirubin Neg (NEG) Urine Urobilinogen Dipstick 1.0 mg/dL (0.2 mg/dL) Urine Leukocyte Esterase Small (NEG) Urine RBC 3-5 /HPF (0-2) Urine WBC 5-10 /HPF (0-4) Urine Squamous Epithelial Cells Mod /LPF Urine Amorphous Sediment Present /HPF Urine Bacteria Mod /HPF (0-FEW) Urine Mucus Mod /LPF Urine Opiates Screen Neg (NEG) Urine Methadone Screen Neg (NEG) Urine Barbiturates Neg (NEG) Urine Phencyclidine Screen Neg (NEG) Urine Amphetamine/Methamphetamine Neg (NEG) Urine Benzodiazepines Screen Neg (NEG) Urine Cocaine Screen Neg (NEG) Urine Cannabinoids Screen Pos (NEG) Urine Ethyl Alcohol Neg (NEG) POC Urine HCG, Qualitative hcg positive (Negative) Vital Signs: Vital Signs Date Time Temp Pulse Resp B/P (MAP) Pulse Ox O2 Delivery O2 Flow Rate FiO2 10/09/20 08:03 97.8 70 18 123/78 (93) 100 EKG: EKG: [] Radiology/Procedures: Radiology/Procedures: [] Heart Score: Risk Factors: Risk Factors: DM, Current or recent (<one month) smoker, HTN, HLP, family history of CAD, obesity. Risk Scores: Score 0 - 3: 2.5% MACE over next 6 weeks - Discharge Home Score 4 - 6: 20.3% MACE over next 6 weeks - Admit for Clinical Observation Score 7 - 10: 72.7% MACE over next 6 weeks - Early Invasive Strategies Course & Med Decision Making: Course & Med Decision Making Pertinent Labs and Imaging studies reviewed. (See chart for details) [] Dragon Disclaimer: Dragon Disclaimer: This electronic medical record was generated, in whole or in part, using a voice recognition dictation system. Departure Departure: Impression: Primary Impression: Cannabinoid hyperemesis syndrome Disposition: 01 DC HOME SELF CARE/HOMELESS Condition: IMPROVED Referrals: WAQAS GAITAN (PCP) Patient Instructions: Nausea and Vomiting Scripts Cephalexin (CEPHALEXIN) 500 Mg Tablet 1 TAB PO BID for antibiotic for 5 Days, #10 TAB Prov: SONJA LAKE MD 10/09/20 Ondansetron (ONDANSETRON ODT) 4 Mg Tab.rapdis 1 TAB PO PRN Q6-8HRS PRN for NAUSEA for 10 Days, #20 TAB Prov: SONJA LAKE MD 10/09/20 SONJA LAKE MD Oct 09, 2020 10:23
== END 2020-10-09 11:00 | disposition home or self-care (01) ==
LOC: ER 08:00
DX: O21.0 Mild hyperemesis gravidarum (principal); O16.1 Unspecified maternal hypertension, first trimester; Z3A.00 Weeks of gestation of pregnancy not specified; Z88.1 Allergy status to other antibiotic agents
CPT/HCPCS: 36415; 80307; 81001; 81025; 87086; 99283

== ENCOUNTER 2020-10-10 08:20 | Emergency (ER) | payer OTHER ==
[~2020-10-10] VITALS: Ht 152.4 cm; Wt 61.6 kg
[~2020-10-10 08:20] MED LIST changes: +CEPH500T PO
--- NOTE | 2020-10-10 08:58 | PHYS DOC ---
Past History Past Medical History: Hypertension, Other Additional Past Medical Histor: EISONOPHILIC GASTROENTERITIS Past Surgical History: Appendectomy, Cholecystectomy, Tonsillectomy, Tubal ligation, Other Additional Past Surgical Histo: KNEE X2 Smoking: Non-smoker Alcohol Use: None Drug Use: Marijuana General Adult EDM: Chief Complaint: VOMITING IN HPI: HPI: Patient is a 24-year-old female coming in for vomiting. She is 8 weeks was seen in this emergency department yesterday and given a prescription for Zofran and Keflex. Patient states she did not have money to get her prescriptions filled and was okay yesterday after she left. Woke up again this morning around 5 and started vomiting. Denies any other new symptoms. States she will get paid today which revealed to get her prescriptions filled this morning is requesting relief from nausea and vomiting. Review of Systems: Review of Systems: All other systems within normal limits except for as noted in the HPI Current Medications: Current Meds: Current Medications Medications (Trade) Dose Ordered Sig/Tere Start Time Stop Time Status Last Admin Dose Admin Ondansetron HCl (Zofran Odt) 8 mg 1X ONCE 10/10/20 09:00 10/10/20 09:01 10/10/20 08:50 8 MG Allergies: Allergies: Allergies Coded Allergies Type Severity Reaction Last Updated Verified amoxicillin Allergy Unknown 10/09/20 Yes clavulanic acid Allergy Unknown RASH 10/09/20 Yes Physical Exam: PE: Constitutional: Well developed, well nourished, moderate acute distress, non- toxic appearance. [] HENT: Normocephalic, atraumatic, bilateral external ears normal, nose normal. [] Eyes: PERRLA, conjunctiva normal, no discharge. [] Neck: No rigidity, supple, no stridor. [] Cardiovascular: Regular rate and rhythm, brisk cap refill [] Lungs & Thorax: Non labored symmetric respirations, no tachypnea or respiratory distress [] Abdomen: Soft, nondistended, generalized tenderness, no rebound or guarding Skin: Warm, dry, no erythema, no rash. [] Back: Unremarkable Extremities: No deformities, range of motion grossly intact, no lower extremity edema [] Neurologic: Alert and oriented X 3, no focal deficits noted. [] Psychologic: Affect normal, judgement normal, mood normal. [] Current Patient Data: Vital Signs: Vital Signs Date Time Temp Pulse Resp B/P (MAP) Pulse Ox O2 Delivery O2 Flow Rate FiO2 10/10/20 08:28 99.1 90 18 134/90 (105) 97 Room Air EKG: EKG: [] Radiology/Procedures: Radiology/Procedures: [] Heart Score: Risk Factors: Risk Factors: DM, Current or recent (<one month) smoker, HTN, HLP, family history of CAD, obesity. Risk Scores: Score 0 - 3: 2.5% MACE over next 6 weeks - Discharge Home Score 4 - 6: 20.3% MACE over next 6 weeks - Admit for Clinical Observation Score 7 - 10: 72.7% MACE over next 6 weeks - Early Invasive Strategies Course & Med Decision Making: Course & Med Decision Making Vital signs stable, nausea controlled with Zofran ODT and patient passed p.o. challenge. Already has prescriptions from yesterday that she states she can get filled today. [] Dragon Disclaimer: Dragon Disclaimer: This electronic medical record was generated, in whole or in part, using a voice recognition dictation system. Departure Departure: Impression: Primary Impression: Nausea and vomiting during prior to 22 weeks gestation Disposition: 01 DC HOME SELF CARE/HOMELESS Condition: STABLE Referrals: WAQAS GAITAN (PCP) Patient Instructions: - First Trimester SONJA LAKE MD Oct 10, 2020 08:58
[2020-10-10] MEDS ORDERED: ONDANSETRON ODT 4 MG TAB.RAPDIS PO ONE (09:00)
[2020-10-10 09:51] VITALS: BP 113/58
== END 2020-10-10 09:51 | disposition home or self-care (01) ==
LOC: ER 08:20
DX: O21.9 Vomiting of pregnancy, unspecified (principal); O16.1 Unspecified maternal hypertension, first trimester; Z3A.08 8 weeks gestation of pregnancy; Z90.89 Acquired absence of other organs; Z90.49 Acquired absence of other specified parts of digestive tract; Z98.51 Tubal ligation status; Z88.1 Allergy status to other antibiotic agents
CPT/HCPCS: 99283; Q0162

== ENCOUNTER 2020-10-27 23:31 | Emergency (ER) | payer OTHER ==
[~2020-10-27] VITALS: Ht 152.4 cm; Wt 65.3 kg
--- NOTE | 2020-10-28 00:06 | PHYS DOC ---
Past History Past Medical History: Hypertension, Other Additional Past Medical Histor: EISONOPHILIC GASTROENTERITIS Past Surgical History: Appendectomy, Cholecystectomy, Tonsillectomy, Tubal ligation, Other Additional Past Surgical Histo: KNEE X2 Smoking: Non-smoker Alcohol Use: None Drug Use: Marijuana Adult General Chief Complaint Chief Complaint: VAGINAL BLEEDING HPI HPI Patient is a 24-year-old female, approximately 10 weeks by home test who presents with a chief complaint of vaginal bleeding. Patient has a significant history of ectopic last year and removal of fallopian tube. States that she had some thick bloody vaginal discharge today x1. Denies any recent illnesses, traumas, travel, fevers, chest pain, shortness of breath, dysuria, blood in the stool. States she has an upcoming appointment with her T[facility]SEL SNIPPER for her first ultrasound. Review of Systems Review of Systems Review of systems otherwise unremarkable except noted in HPI Allergies Allergies Allergies Coded Allergies Type Severity Reaction Last Updated Verified amoxicillin Allergy Unknown 10/09/20 Yes clavulanic acid Allergy Unknown RASH 10/09/20 Yes Physical Exam Physical Exam Constitutional: Well developed, well nourished, no acute distress, non-toxic appearance. [] HENT: Normocephalic, atraumatic, bilateral external ears normal, oropharynx moist, no oral exudates, nose normal. [] Eyes: conjunctiva normal, no discharge. [] Neck: Normal range of motion, no tenderness, supple, no stridor. [] Cardiovascular:Heart rate regular rhythm, no murmur [] Lungs & Thorax: Bilateral breath sounds clear to auscultation [] Abdomen: soft, no tenderness, no masses, no pulsatile masses. : Pelvic exam with no obvious bleeding, scant white discharge and closed cervical os Skin: Warm, dry, no erythema, no rash. [] Back: no CVA tenderness. [] Extremities: No tenderness, no cyanosis, no clubbing, ROM intact, no edema. [] Neurologic: Alert and oriented X 3, normal motor function, normal sensory function, no focal deficits noted. [] Psychologic: Affect normal, judgement normal, mood normal. [] Current Patient Data Lab Results Laboratory Tests Test 10/27/20 00:12 White Blood Count 8.9 x10^3/uL (4.0-11.0) Red Blood Count 3.81 x10^6/uL (3.50-5.40) Hemoglobin 11.9 g/dL (12.0-15.5) Hematocrit 35.8 % (36.0-47.0) Mean Corpuscular Volume 94 fL (79-100) Mean Corpuscular Hemoglobin 31 pg (25-35) Mean Corpuscular Hemoglobin Concent 33 g/dL (31-37) Red Cell Distribution Width 13.4 % (11.5-14.5) Platelet Count 247 x10^3/uL (140-400) Neutrophils (%) (Auto) 50 % (31-73) Lymphocytes (%) (Auto) 40 % (24-48) Monocytes (%) (Auto) 9 % (0-9) Eosinophils (%) (Auto) 1 % (0-3) Basophils (%) (Auto) 0 % (0-3) Neutrophils # (Auto) 4.5 x10^3uL (1.8-7.7) Lymphocytes # (Auto) 3.5 x10^3/uL (1.0-4.8) Monocytes # (Auto) 0.8 x10^3/uL (0.0-1.1) Eosinophils # (Auto) 0.1 x10^3/uL (0.0-0.7) Basophils # (Auto) 0.0 x10^3/uL (0.0-0.2) Urine Collection Type Unknown Urine Color Yellow Urine Clarity Cloudy Urine pH 6.0 Urine Specific [place] >=1.030 Urine Protein Neg (NEG-TRACE) Urine Glucose (UA) Neg mg/dL (NEG) Urine Ketones (Stick) Neg mg/dL (NEG) Urine Blood Mod (NEG) Urine Nitrite Neg (NEG) Urine Bilirubin Neg (NEG) Urine Urobilinogen Dipstick 0.2 mg/dL (0.2 mg/dL) Urine Leukocyte Esterase Trace (NEG) Urine RBC Occ /HPF (0-2) Urine WBC Occ /HPF (0-4) Urine Squamous Epithelial Cells Many /LPF Urine Bacteria Many /HPF (0-FEW) Maternal Serum HCG Beta Subunit 69283 mIU/mL (0-6) Sodium Level 136 mmol/L (136-145) Potassium Level 3.5 mmol/L (3.5-5.1) Chloride Level 101 mmol/L (98-107) Carbon Dioxide Level 25 mmol/L (21-32) Anion Gap 10 (6-14) Blood Urea Nitrogen 8 mg/dL (7-20) Creatinine 0.6 mg/dL (0.6-1.0) Estimated GFR (Cockcroft-Gault) 122.8 Glucose Level 97 mg/dL (70-99) Calcium Level 9.1 mg/dL (8.5-10.1) EKG EKG [] Radiology/Procedures Radiology/Procedures [] FINDINGS: The uterus measures 12 x 8 x 8.1 cm. Unremarkable uterine parenchyma. The cervix is closed and measured at approximately 4 cm. Normally marginated intrauterine gestational sac containing a pole with a crown-rump length of 4.33 cm. Estimated gestational age of 11 weeks 1 day. The right ovary measures 3.1 x 1.9 x 1.6 cm and the left ovary 2.9 x 2.2 x 1.5 cm. Normal Doppler flow. No complex cyst or mass. heart rate of 160 bpm. IMPRESSION: 1. Single live intrauterine without any complication by ultrasound to explain the patient's vaginal bleeding. 2. Estimated gestational age of 11 weeks 1 day corresponding to delivery date of 05/18/2021. Electronically signed by: OMEGA NANCE MD (10/28/2020 1:53 AM) [facility] Heart Score Risk Factors: Risk Factors: DM, Current or recent (<one month) smoker, HTN, HLP, family history of CAD, obesity. Risk Scores: Risk Factors: DM, Current or recent (<one month) smoker, HTN, HLP, family history of CAD, obesity. Course & Med Decision Making Course & Med Decision Making Patient is a 24-year-old female, approximately 10 weeks by home who presents with an episode of vaginal bleeding and concern for ectopic as she has had 1 in the past Vital signs not concerning. Physical exam noted above. Imaging with asymptomatic bacteriuria. Bedside ultrasound noted above with live intrauterine at about 11 weeks and a heart rate of 160. Started patient on Keflex for asymptomatic bacteriuria. Wet prep, vaginitis panel and Chlamydia gonorrhea pending. Patient stated that she would prefer to go home, and wait for the results to see if she needs to start any further treatment. Discussed all findings with patient and advised to follow-up with primary care physician/T[facility] SN[facility]PER Saturday. Gave strict return precautions to the ED. Patient grateful, verbalized understanding and agreed with plan of discharge. [] Dragon Disclaimer Dragon Disclaimer This electronic medical record was generated, in whole or in part, using a voice recognition dictation system. Departure Departure: Impression: Primary Impression: Vaginal bleeding affecting early Disposition: HOME SELF CARE/HOMELESS Condition: GOOD Referrals: WAQAS GAITAN (PCP) Additional Instructions: Please read all the attached information. Please take all your antibiotics and medications as prescribed. Please call your TASSEL SNIPPER first thing Saturday morning to discuss your ED visit and set up a follow-up as needed. Please come back to the ED with new or concerning symptoms as discussed. Scripts Cephalexin (CEPHALEXIN) 500 Mg Capsule 1 CAP PO TID for UTI for 5 Days, #15 CAP Prov: ISABELLA CONLEY MD 10/28/20 ISABELLA CONLEY MD Oct 28, 2020 00:06
[2020-10-28 00:36] LABS: BASO % 0 % (0-3); EOS # 0.1 x10^3/uL (0.0-0.7); EOS % 1 % (0-3); HEMATOCRIT 35.8 % (36.0-47.0); HEMOGLOBIN 11.9 g/dL (12.0-15.5); LYMPH # 3.5 x10^3/uL (1.0-4.8); LYMPH % 40 % (24-48); MEAN CORPUSCULAR HEMOGLOBIN 31 pg (25-35); MEAN CORPUSCULAR HGB CONC 33 g/dL (31-37); MEAN CORPUSCULAR VOLUME 94 fL (79-100); MONO # 0.8 x10^3/uL (0.0-1.1); MONO % 9 % (0-9); NEUT # 4.5 x10^3uL (1.8-7.7); NEUT % 50 % (31-73); PLATELET COUNT 247 x10^3/uL (140-400); RED BLOOD COUNT 3.81 x10^6/uL (3.50-5.40); RED CELL DISTRIBUTION WIDTH 13.4 % (11.5-14.5); WHITE BLOOD COUNT 8.9 x10^3/uL (4.0-11.0)
[2020-10-28 00:45] LABS: BILIRUBIN,URINE NEG (NEG); CLARITY,URINE CLOUDY; COLOR,URINE YELLOW; GLUCOSE,URINE NEG (NEG)
[2020-10-28 00:46] LABS: BACTERIA,URINE MANY /HPF (0-FEW); NITRITE,URINE NEG (NEG); RBC,URINE OCC /HPF (0-2); SQUAMOUS EPITHELIAL CELL,UR MANY /LPF; UROBILINOGEN,URINE 0.2 mg/dL (0.2 mg/dL); WBC,URINE OCC /HPF (0-4)
[2020-10-28 00:50] LABS: CALCIUM 9.1 mg/dL (8.5-10.1); CREATININE 0.6 mg/dL (0.6-1.0); GFR 122.8; POTASSIUM 3.5 mmol/L (3.5-5.1)
--- NOTE | 2020-10-28 01:55 | RAD ---
Study: US OB 14+ WKS DATE: 10/27/2020 1:21 AM INDICATION: Vaginal bleeding. COMPARISON: None. TECHNIQUE: Transabdominal ultrasonography of the pelvis was performed. Color Doppler and duplex were utilized as appropriate. FINDINGS: The uterus measures 12 x 8 x 8.1 cm. Unremarkable uterine parenchyma. The cervix is closed and measur ed at approximately 4 cm. Normally marginated intrauterine gestational sac containing a pole with a crown-rump length of 4.33 cm. Estimated gestational age of 11 weeks 1 day. The right ovary measures 3.1 x 1.9 x 1.6 cm and the left ovary 2.9 x 2.2 x 1.5 cm. Normal Doppler stella w. No complex cyst or mass. heart rate of 160 bpm. IMPRESSION: 1. Single live intrauterine without any complication by ultrasound to explain the patient' s vaginal bleeding. 2. Estimated gestational age of 11 weeks 1 day corresponding to delivery date of 05/18/2021. Electronically signed by: OMEGA NANCE MD (10/28/2020 1:53 AM) [facility]
[2020-10-28] MEDS ORDERED: CEPH500C PO (03:04)
[2020-10-28] MEDS ORDERED: CEPHALEXIN 250 MG CAPSULE PO ONE (03:30)
[2020-10-28 04:27] VITALS: BP 116/62
[2020-10-31 20:07] LABS: CHLAMYDIA PROBE Negative (Negative)
== END 2020-10-28 04:25 | disposition home or self-care (01) ==
LOC: ER 23:31
DX: O46.91 Antepartum hemorrhage, unspecified, first trimester (principal); Z3A.10 10 weeks gestation of pregnancy; O16.1 Unspecified maternal hypertension, first trimester; Z90.49 Acquired absence of other specified parts of digestive tract; Z90.89 Acquired absence of other organs; Z98.51 Tubal ligation status; Z88.1 Allergy status to other antibiotic agents; Z88.8 Allergy status to other drugs, medicaments and biological substances
CPT/HCPCS: 36415; 76801; 80048; 81001; 84702; 85025; 87086; 87491; 87591; 99284